=== PATIENT | male | born 1965 | race Caucasian/White ===

== ENCOUNTER 2019-08-17 16:33 | Emergency (ER) | payer MEDICARE, OTHER ==
[2019-08-17 16:50] VITALS: TEMP 97.5
--- NOTE | 2019-08-17 17:29 | XR ---
EXAMINATION TYPE: XR hand complete RT DATE OF EXAM: 08/17/2019 COMPARISON: NONE HISTORY: Pain TECHNIQUE: 3 views FINDINGS: Metacarpals are intact. I see no fracture nor dislocation. Joint spaces are normal. There a re no erosions. Thumb appears intact. IMPRESSION: Negative right hand exam. No fracture seen.
--- NOTE | 2019-08-17 18:26 | ED ---
General Adult HPI - General Chief complaint: Extremity Injury, Upper Stated complaint: rt thumb injury from fall Time Seen by Provider: 08/17/19 16:53 Source: patient, RN notes reviewed Mode of arrival: ambulatory Limitations: no limitations - History of Present Illness Initial comments: 53-year-old male presents to the emergency department for a chief complaint of right thumb injury. Patient states that 2 days ago he was sitting in a chair and fell backwards onto his right thumb. States he felt like he hyperextended it. States it has been painful since that time. Denies any other pain in the hand. Denies hitting his head or any other injuries.Patient has no other complaints at this time including shortness of breath, chest pain, abdominal pain, nausea or vomiting, headache, or visual changes. - Related Data Allergies Allergy/AdvReac Type Severity Reaction Status Date / Time No Known Allergies Allergy Verified 08/17/19 16:50 Review of Systems ROS Statement: Those systems with pertinent positive or pertinent negative responses have been documented in the HPI. ROS Other: All systems not noted in ROS Statement are negative. Past Medical History Past Medical History: Atrial Fibrillation, CVA/TIA Additional Past Medical History / Comment(s): Hep C. History of Any Multi-Drug Resistant Organisms: None Reported Past Surgical History: Cholecystectomy Smoking Status: Current every day smoker Past Alcohol Use History: None Reported Past Drug Use History: Cocaine General Exam Limitations: no limitations General appearance: alert, in no apparent distress Head exam: Present: atraumatic, normocephalic, normal inspection Eye exam: Present: normal appearance, PERRL, EOMI. Absent: scleral icterus, conjunctival injection, periorbital swelling ENT exam: Present: normal exam, mucous membranes moist Neck exam: Present: normal inspection, full ROM. Absent: tenderness, meningismus, lymphadenopathy Respiratory exam: Present: normal lung sounds bilaterally. Absent: respiratory distress, wheezes, rales, rhonchi, stridor Cardiovascular Exam: Present: regular rate, normal rhythm, normal heart sounds. Absent: bradycardia, tachycardia, irregular rhythm Extremities exam: Present: full ROM (Full range motion of the right thumb but this does elicit pain along the MCP and IP joints.), tenderness (Tenderness most pronounced in the proximal phalanx of the right thumb on the dorsal aspect.), no rmal capillary refill (Capillary refill less than for radial pulse 2+ in the right upper extremity.), joint swelling (She does have some ecchymosis and edema present of the right MCP joint. No significant scaphoid tenderness.), other (Sensation intact in the right upper extremity.). Absent: pedal edema, calf tenderness Course Vital Signs 08/17/19 16:47 Temperature 97.5 F L Pulse Rate 104 H Respiratory 20 Rate Blood Pressure 141/95 O2 Sat by Pulse 99 Oximetry Procedures - Orthopedic Splinting/Casting Injury #1 Side: right Upper Extremity Injury Location: hand Upper Extremity Immobilizer: thumb spica Medical Decision Making - Medical Decision Making 53-year-old male presents to the emergency department for a chief complaint of right thumb injury. Patient has ecchymosis and tenderness noted to the proximal phalanx and MCP joint of the right thumb. Tenderness is over this area as well. Neurovascular status intact in the right upper extremity. X-ray is negative for fracture. However given concern for occult fracture splint was applied in thumb spica fashion. Patient was given orthopedic referral. He will return if he has any other worsening symptoms. Disposition Clinical Impression: Thumb injury Disposition: HOME SELF-CARE Condition: Good Instructions (If sedation given, give patient instructions): Hand Sprain (ED) Additional Instructions: Please take Motrin and Tylenol for pain. Ice the area. Keep splint dry. Follow-up with orthopedics in one to 2 days. Return to the emergency department if you have any worsening symptoms. Is patient prescribed a controlled substance at d/c from ED?: No Referrals: Reece Rubi DO [Doctor of Osteopathic Medicine] - 1-2 days Time of Disposition: 18:26
[2019-08-17 18:40] VITALS: BP 145/88; PULSE 90; RESP 16
== END 2019-08-17 18:35 | disposition home or self-care (01) ==
LOC: EC 16:33
DX: S60.011A Contusion of right thumb without damage to nail, initial encounter (principal); F17.200 Nicotine dependence, unspecified, uncomplicated; I48.91 Unspecified atrial fibrillation; W07.XXXA Fall from chair, initial encounter; Y93.89 Activity, other specified
CPT/HCPCS: 99283